=== PATIENT | female | born 1955 | race Caucasian/White ===

== ENCOUNTER 2016-09-22 11:36 | Emergency (ER) | payer OTHER ==
[~2016-09-22] VITALS: Ht 185.4 cm; Wt 95.9 kg
[2016-09-22] MEDS ORDERED: SODIUM CHLORIDE 0.9% 1,000 ML IV ONE (12:31)
[2016-09-22] MEDS ORDERED: KETOROLAC 30 MG/1 ML ONE (12:43)
[2016-09-22] MEDS ORDERED: KETOROLAC 30 MG/1 ML IVPush ONE (13:00)
[2016-09-22] MEDS ORDERED: SODIUM CHLORIDE FLUSH 10ML SYR IVF ONE (13:00)
[2016-09-22] MEDS ORDERED: ONDANSETRON 2MG/ML, 2ML IVPush ONE (13:00)
[2016-09-22] MEDS ORDERED: SODIUM CHLORIDE 0.9% 1,000ML IVBOLUS ONE (13:00)
[2016-09-22 13:02] LABS: ASPARTATE AMINO TRANSFERASE 18 U/L (15-37); BLOOD UREA NITROGEN 13 mg/dL (7-18)
[2016-09-22] MEDS ORDERED: PINK LADY ENEMA 1,000 ML PR ONE (14:00)
[2016-09-22 15:19] VITALS: BP 128/80
== END 2016-09-22 15:22 | disposition home or self-care (01) ==
LOC: ED 13:53
DX: K59.00 Constipation, unspecified (principal)
CPT/HCPCS: 36415; 74022; 80053; 81001; 83690; 85025; 96361; 96374; 99285; J1885; J7030